=== PATIENT | male | born 1960 | race Caucasian/White ===

== ENCOUNTER 2020-06-22 13:12 | Day surgery (SDC) | payer BC ==
[2020-06-22] VITALS (9 sets, daily range): BP systolic 132–150; BP diastolic 60–81; PULSE 49–98; TEMP 98.1
[~2020-06-22] VITALS: Ht 177.8 cm; Wt 99.0 kg
[2020-06-22] MEDS ORDERED: PROTONIX 40MG T40 MG PO (14:09)
[2020-06-22] MEDS ORDERED: ZESTRIL 20MG TA20 MG PO (14:11)
--- NOTE | 2020-06-22 19:00 | NUR ---
Patient arrived to floor from PACU via bed at 1635. Patient was alert and oriented but slightly drowsy, roused easily and was appropriate while awake. CBI in place, urine was completely clear upon arrival, CBI titrated down. Post op checks initated. Patient changed to a general diet and ate 100% of his dinner tray and denied nausea. IVF per order. Patient denies needs at this time, call light within reach.
[2020-06-23 00:28] VITALS: BP 119/64; PULSE 65; TEMP 97.9
--- NOTE | 2020-06-23 00:46 | NUR ---
Patient and had multiple questions at the beginning of the shift. Answers given to the best of my ability. No further questions after this. IVF continue to right forearm. CBI continue at slow rate. Urine is clear to pink. Denies any pain. Patient is resting at this time with eyes closed. Denies any further needs. Taking in fluids well. Will INT at end of this bag. Will continue to monitor.
[2020-06-23 04:13] VITALS: BP 124/61; PULSE 61; TEMP 98.2
--- NOTE | 2020-06-23 08:00 | NUR ---
Patient resting in bed at this time. Patient is alert and oriented, plesant and cooperative. CBI at a slow rate, urine is pink. Oncology nurse will administer mitomycin per order.
[2020-06-23 08:30] VITALS: BP 119/62; PULSE 71; TEMP 97.8
[2020-06-23 08:31] VITALS: BP 136/64; PULSE 77; TEMP 98.2
--- NOTE | 2020-06-23 09:08 | NUR ---
Initial visit; Patient and his thanked Marketing Segment Manager for looking in on him and offering prayer and encouragement along with God's blessings.
--- NOTE | 2020-06-23 09:42 | NUR ---
Pt and at bedside when teaching done, questions asked and printed information provided during education. Pt up to bathroom with standby assist to see if could have BM but did not and assisted back to bed. Chemotherapy drug verified correct by comparing printed label with entered order with Lela Chawla RN. Chemotherapy precautions are in place and were observed during administration process. Barrientos catheter drained and clamped. Mitomycin 40mg/40ml instilled into bladder and instillation port cleansed following completion. Pt and will monitor time and reposition every 15 minutes, side to back to side to abdomen as tolerated. Urine from drainage bag is yellow with pink tinge. Consent for surgery had included mitomycin consent.
--- NOTE | 2020-06-23 10:21 | NUR ---
Pt reports has been turning [id number] and is now on abdomen. at bedside and assisting him as needed with turning. He denies needs or concerns at this check.
--- NOTE | 2020-06-23 10:50 | NUR ---
Pt on back and will turn to left side in 5 minutes. Tolerating claros being clamped well. at bedside and denies additional needs.
[2020-06-23 12:00] VITALS: BP 134/65; PULSE 72; TEMP 97.8
--- NOTE | 2020-06-23 12:09 | NUR ---
Mitomycin dwell time was complete at 1134. Clamp was released and mitomycin was drained from bladder, 250ml of clear bluish colored liquid with minimal pink color but no clots. CBI was used to rinse bladder with 300ml. Claros catheter balloon was emptied and claros cath was dc'd without difficulty. Pt tolerated this well. Water was renewed to bedside and lunch tray has arrived. Pt was provided with a urinal at his request. Report to primary nurse Lela Garcia RN.
--- NOTE | 2020-06-23 12:16 | NUR ---
Chemotherapy precautions were followed throughout this procedure and signage is in place outside the door.
--- NOTE | 2020-06-23 13:45 | NUR ---
Discharge teaching completed. Discussed follow up appointment, discharge instructions, activity restrictions, and indications of complications. Patient and verbalized understanding. Patient confirmed all belongings gathered, escorted to visitor entrance where he entered a private vehicle.
== END 2020-06-23 13:45 | disposition home or self-care (01) ==
LOC: SDCO 13:12 → SURG 13:12 → SDCO 15:30 → SURG 16:36 → SDCO 06-23 13:45
DX: C67.4 Malignant neoplasm of posterior wall of bladder (principal); R31.29 Other microscopic hematuria; I10 Essential (primary) hypertension; K21.9 Gastro-esophageal reflux disease without esophagitis; K22.70 Barrett's esophagus without dysplasia; G47.30 Sleep apnea, unspecified; F17.290 Nicotine dependence, other tobacco product, uncomplicated; Z80.7 Family history of other malignant neoplasms of lymphoid, hematopoietic and related tissues; Z80.42 Family history of malignant neoplasm of prostate; Z82.49 Family history of ischemic heart disease and other diseases of the circulatory system; Z84.1 Family history of disorders of kidney and ureter
CPT/HCPCS: OP; J0690; J2405; J2704; J3010; J3480; J7120; J9280

== ENCOUNTER 2020-07-13 12:00 | Day surgery (SDC) | payer BC ==
[~2020-07-13] VITALS: Ht 177.8 cm; Wt 99.5 kg
[2020-07-13] VITALS (7 sets, daily range): BP systolic 140–155; BP diastolic 66–85; PULSE 54–78; TEMP 97.6–97.7
[~2020-07-13 12:00] MED LIST: PROTONIX 40MG T40 MG PO; ZESTRIL 20MG TA20 MG PO
[2020-07-13] MEDS ORDERED: [UNRECOGNIZED DRUG - OTHER] TOP (12:44)
--- NOTE | 2020-07-13 15:30 | NUR ---
Pt taking food and drink well. Pt continues to deny pain or nausea. Pt requesting more crackers. Urine drainage continues to be clear and slightly yellow. CBI flow at about 200 mls/hr.
--- NOTE | 2020-07-13 15:35 | NUR ---
Hand-off bedside report received from Kathy WALL STEAMER, in PACU.
--- NOTE | 2020-07-13 15:40 | NUR ---
Pt brought from PACU to [facility] [place] [facility] [address] via cart and this RN. Pt alert and conversing well. Monitors on and alarms set. Call light within reach. present in room. Pt requesting crackers and water. Pt denies any pain or nausea.
--- NOTE | 2020-07-13 15:55 | NUR ---
Pt continues to have no complications. Urine drainage clear and slightly yellow as before. Visit with Dr. Hernandez about pt condition. Dr. Hernandez states to prime the bladder with 300 mls of CBI, discontinue the catheter, and discharge the patient.
--- NOTE | 2020-07-13 16:25 | NUR ---
Pt prepared for discontinuation of catheter. 23 mls of fluid removed from catheter balloon, and catheter discontinued intact. 1000 mls of drainage in claros bag. Pt tolerated removal well.
--- NOTE | 2020-07-13 16:30 | NUR ---
Dr. Hernandez in pt room to discuss any questions or concerns with pt and .
--- NOTE | 2020-07-13 17:10 | NUR ---
Pt desires to use the restroom. Pt urinates slightly red tinged urine and ambulates back to discharge bay with RN assist.
--- NOTE | 2020-07-13 17:44 | NUR ---
Completion of discharge education given to patient and . Multiple questions asked and answered to their satisfaction. Handed to them are discharge instructions, a patient health summary, a thank you card, and a discharge med sheet. This RN encouraged pt or to call us if there are any complications with the Colace in the pharmacy tomorrow or other items. Both voiced and repeated understanding.
--- NOTE | 2020-07-13 17:56 | NUR ---
Transfer pt out of hospital via wheelchair and this RN to private vehicle driven by .
== END 2020-07-13 17:56 | disposition home or self-care (01) ==
LOC: SDCO 12:00
DX: N32.89 Other specified disorders of bladder (principal); K21.9 Gastro-esophageal reflux disease without esophagitis; K22.70 Barrett's esophagus without dysplasia; I10 Essential (primary) hypertension; K44.9 Diaphragmatic hernia without obstruction or gangrene; F17.290 Nicotine dependence, other tobacco product, uncomplicated; Z83.3 Family history of diabetes mellitus; Z80.42 Family history of malignant neoplasm of prostate; Z20.828 Contact with and (suspected) exposure to other viral communicable diseases
CPT/HCPCS: J0690; J2405; J2704; J3010; J7120